=== PATIENT | female | born 1980 | race Caucasian/White ===

== ENCOUNTER → 2016-10-23 | Outpatient (CLI) | payer OTHER | END | disposition home or self-care (01) | LOC: LABWHC1 08:33 | PROVIDERS: ATTEND Orthopaedic Surgery | DX: M54.16 Radiculopathy, lumbar region (principal) | CPT/HCPCS: 87070 ==

== ENCOUNTER → 2017-07-09 | Outpatient (CLI) | payer OTHER | END | disposition home or self-care (01) | LOC: LABWHC1 09:05 | PROVIDERS: ATTEND Orthopaedic Surgery | DX: M54.16 Radiculopathy, lumbar region (principal) | CPT/HCPCS: 87070 ==

== ENCOUNTER → 2018-03-30 | Outpatient (CLI) | payer OTHER ==
--- NOTE | 2018-03-30 12:58 | XR ---
EXAMINATION TYPE: XR lumbosacral spine min 4V DATE OF EXAM: 03/30/2018 COMPARISON: 06/24/2013 HISTORY: 37-year-old female strained muscle, fascia and tendon of lower back, lifting injury yesterda y, history of back surgery x2. TECHNIQUE: 5 views FINDINGS: 5 lumbar type vertebral bodies. Progressive, now moderate degenerative disc disease at L4-L5 with dis c space narrowing and endplate sclerosis. Very mild endplate spondylosis at additional levels. Facet arthropathy mid to lower lumbar spine. Vertebral body heights are preserved and alignment is maintain ed. IMPRESSION: Progression to moderate degenerative disc disease at L4-L5. Facet arthropathy mid to lower lumbar spi ne. No vertebral compression collapse or malalignment.
== END | disposition home or self-care (01) ==
LOC: RADXRMAIN 12:19
PROVIDERS: ATTEND Emergency Medicine
DX: M51.36 Other intervertebral disc degeneration, lumbar region (principal); M48.8X6 Other specified spondylopathies, lumbar region
CPT/HCPCS: 72110

== ENCOUNTER → 2018-04-21 | Outpatient (CLI) | payer OTHER ==
--- NOTE | 2018-04-21 23:09 | MR ---
EXAMINATION TYPE: MR lumbar spine wo/w con DATE OF EXAM: 04/21/2018 COMPARISON: 06/17/2017 HISTORY: Strain of muscle, fascia, tendon, lumbar TECHNIQUE: Multiplanar, multisequence images of the lumbar spine were acquired utilizing [address] gadolinium contrast. The vertebra have fairly normal alignment. There is moderate narrowing of L4-5 disc space. There is m ild narrowing at L5-S1 disc. There is no compression fracture. There is large posterior central and r ight-sided L4-5 disc herniation. There is laminectomy at L4. There is epidural enhancement at the L4- 5 level posteriorly and anteriorly. There is no compression fracture. There is no lumbar paraspinal m ass. There is a smaller posterior left-sided L5-S1 lumbar disc herniation. There is epidural enhancem ent in this area as well. There is left-sided L5 laminectomy defect. There is mild enhancement in the L4 and L5 vertebral bodies on both sides of the disc space. IMPRESSION: There is posterior L5-S1 disc herniation on the left side unchanged compared to old exam. There are n ew postsurgical changes. There is posterior central and right sided L4-5 disc herniation without sign ificant change in size. There is epidural enhancement at L4 and L5 consistent with epidural scarring. No spinal stenosis. There is mild enhancement of L4 and L5 vertebral bodies consistent with some pos tsurgical reactive changes. I do not see evidence of discitis.
== END | disposition home or self-care (01) ==
LOC: RADMRIMAIN 13:01
PROVIDERS: ATTEND Emergency Medicine
DX: M51.17 Intervertebral disc disorders with radiculopathy, lumbosacral region (principal); S39.012D Strain of muscle, fascia and tendon of lower back, subsequent encounter; Z98.890 Other specified postprocedural states
CPT/HCPCS: 72158; A9581

== ENCOUNTER → 2018-06-11 | Outpatient (CLI) | payer OTHER | LOC: LABWHC1 16:13 | PROVIDERS: ATTEND Orthopaedic Surgery | DX: M48.061 Spinal stenosis, lumbar region without neurogenic claudication (principal) | CPT/HCPCS: 87070 ==

== ENCOUNTER → 2019-10-21 | Outpatient (CLI) | payer OTHER ==
--- NOTE | 2019-10-21 10:42 | US ---
EXAMINATION TYPE: US pelvic limited DATE OF EXAM: 10/21/2019 COMPARISON: US 04/08/2011 CLINICAL HISTORY: R10.32 Left lower quadrant pain. Partial hysterectomy TECHNIQUE: . Transabdominal sonographic images of the pelvis were acquired. Date of LMP: A few years ago EXAM MEASUREMENTS: Uterus: Surgically absent Endometrial Stripe: Surgically absent Right Ovary: 2.5 x 1.6 x 2.0 cm Left Ovary: Not visualized 1. Uterus: Surgically absent 2. Endometrium: Surgically absent 3. Right Ovary: wnl 4. Left Ovary: Obscured by overlying bowel gas 5. Bilateral Adnexa: Large amount of peristalsing bowel visualized, wnl as visualized 6. Posterior cul-de-sac: wnl IMPRESSION: Postop changes. Uterus is not seen. Right ovary is unremarkable. Left ovary not visualize d.
--- NOTE | 2019-10-21 10:52 | US ---
EXAMINATION TYPE: US abdomen complete DATE OF EXAM: 10/21/2019 COMPARISON: NONE CLINICAL HISTORY: R10.32 Left lower quadrant pain. EXAM MEASUREMENTS: Liver Length: 13.9 Gallbladder Wall: 0.2m CBD: 0.3cm Spleen: 8.7 cm Right Kidney: 12.8 x 4.9 x 5.3 cm Left Kidney: 12.5 x 5.7 x 4.7 cm Pancreas: Tail obscured by overlying bowel gas Liver: No focal mass. Echotexture within the liver appears mildly coarse. Gallbladder: wnl Evidence for sonographic Hook's sign: No CBD: wnl Spleen: wnl Right Kidney: No hydronephrosis or masses seen Left Kidney: No hydronephrosis or masses seen Upper IVC: wnl Abd Aorta: wnl There is no evident ascites. Kidneys show normal cortical medullary differentiation. IMPRESSION: Coarse echotexture within the liver could be due to hepatocellular disease, hepatic steat osis.
== END | disposition home or self-care (01) ==
LOC: RADUSWWP 08:47
PROVIDERS: ATTEND Internal Medicine
DX: R10.32 Left lower quadrant pain (principal); R93.2 Abnormal findings on diagnostic imaging of liver and biliary tract; Z98.890 Other specified postprocedural states
CPT/HCPCS: 76700; 76856; 76857

== ENCOUNTER → 2019-12-01 | Outpatient (CLI) | payer OTHER ==
--- NOTE | 2019-12-02 05:44 | CT ---
EXAMINATION TYPE: CT abdomen pelvis w con DATE OF EXAM: 12/01/2019 COMPARISON: NONE HISTORY: 39-year-old female Left sided pelvic pain post back surgery. TECHNIQUE: Contiguous axial scanning of the abdomen and pelvis following administration of 100 ml Iso ramona 300 IV contrast. Delayed images through the kidneys and coronal/sagittal reconstructions perform ed. CT DLP: 1048 mGycm Automated exposure control for dose reduction was used. FINDINGS: LUNG BASES: No significant abnormality is appreciated. LIVER/GB: No significant abnormality is appreciated. Portal venous system is patent. No biliary ducta l dilatation. PANCREAS: No significant abnormality is seen. SPLEEN: No significant abnormality is seen. ADRENALS: No significant abnormality is seen. KIDNEYS: 4 mm nonobstructive left renal calculus. LYMPH NODES: No mesenteric or retroperitoneal lymphadenopathy. Tiny fatty periumbilical hernia. BOWEL: Normal appendix. No dilated small bowel, free fluid, or free air. Mild stool burden. No peric olonic inflammatory change PELVIS: Uterus appears surgically absent. Both ovaries are seen. Bilateral tubal ligation clips are p resent. No abnormal fluid collection in the pelvis or pelvic lymphadenopathy. Muscular compression of bladder wall thickening. BONES: Postsurgical changes of L4-S1 posterior and interbody fusion with corresponding laminectomies. One of the surgical clips are displaced to the left paravertebral region immediately adjacent to the medial margin of the left psoas major, reference axial image 50. This is of questionable clinical si gnificance. IMPRESSION: 1. MILD CIRCUMFERENTIAL BLADDER WALL THICKENING. CORRELATE TO EXCLUDE CYSTITIS. 2. 4 MM NONOBSTRUCTIVE LEFT RENAL CALCULUS. 3. POSTSURGICAL CHANGES OF L4-S1 POSTERIOR AND INTERBODY FUSION WITH CORRESPONDING LAMINECTOMIES. ONE OF THE SURGICAL CLIPS ARE DISPLACED TO THE LEFT PARAVERTEBRAL REGION IMMEDIATELY ADJACENT TO THE MED IAL MARGIN OF THE LEFT PSOAS MAJOR, AXIAL IMAGE 50, AT THE L5 LEVEL. THE SIGNIFICANCE OF THIS FINDING IS QUESTIONABLE AND IS ONLY BEING REPORTED GIVEN THE PATIENT'S LEFT-SIDED PAIN. CORRELATE CLINICALLY .
== END | disposition home or self-care (01) ==
LOC: RADCTMAIN 14:50
PROVIDERS: ATTEND Internal Medicine
DX: N20.0 Calculus of kidney (principal); N32.89 Other specified disorders of bladder; Z98.890 Other specified postprocedural states
CPT/HCPCS: 74177; Q9967

== ENCOUNTER → 2020-05-10 | Outpatient (CLI) | payer OTHER ==
--- NOTE | 2020-05-10 14:16 | MM ---
Reason for exam: screening (asymptomatic). Baseline mammogram. Physical Findings: Nurse did not find any significant physical abnormalities on exam. MG 3D Screening Mammo W/Cad Bilateral CC and MLO view(s) were taken. The breast tissue is heterogeneously dense. This may lower the sensitivity of mammography. Right medial asymmetric density and posterior central asymmetric density incompletely disperse on 3D. Left lateral central and superior posterior asymmetric densities incompletely disperse on 3D. These results were verbally communicated with the patient and result sheet given to the patient on 05/10/20. ASSESSMENT: Incomplete: need additional imaging evaluation, BI-RAD 0 RECOMMENDATION: Special view mammogram of both breasts. (3D)
--- NOTE | 2020-05-10 14:18 | MM ---
Reason for exam: additional evaluation requested from abnormal screening. Physical Findings: Breast exam preformed at baseline screening. MG 3D Work Up W/Cad CARROL Bilateral spot compression CC, spot compression MLO, and LM view(s) were taken. The breast tissue is heterogeneously dense. This may lower the sensitivity of mammography. All of the bilateral asymmetric densities disperse on spot 3D. No persisting suspicious abnormalities seen. These results were verbally communicated with the patient and result sheet given to the patient on 05/10/20. ASSESSMENT: Negative, BI-RAD 1 RECOMMENDATION: Routine screening mammogram of both breasts in 1 year.
== END | disposition home or self-care (01) ==
LOC: RADMAMWWP 13:00
PROVIDERS: ATTEND Internal Medicine
DX: Z12.31 Encounter for screening mammogram for malignant neoplasm of breast (principal)
CPT/HCPCS: 77067; 77066; 77063; G0279; 77062

== ENCOUNTER → 2021-02-07 | Outpatient (CLI) | payer OTHER ==
--- NOTE | 2021-02-07 15:24 | US ---
EXAMINATION TYPE: US pelvic complete DATE OF EXAM: 02/07/2021 COMPARISON: NONE CLINICAL HISTORY: R10.2 Pelvic and perineal pain. pain on the left side after recent back surgery whe re they went through left groin TECHNIQUE: TA. Transabdominal sonographic images of the pelvis were acquired Date of LMP: hysterectomy EXAM MEASUREMENTS: Uterus: Surgically absent Endometrial Stripe: Surgically absent Right Ovary: 3.2 x 2.8 x 2.4 cm Left Ovary: 1.5 x 1.7 x 0.9 cm 1. Uterus: Surgically absent 2. Endometrium: Surgically absent 3. Right Ovary: 2.2 x 1.8 x 2.4cm simple appearing cyst right ovary. 4. Left Ovary: wnl 5. Bilateral Adnexa: wnl 6. Posterior cul-de-sac: wnl IMPRESSION: simple appearing cyst right ovary.
== END | disposition home or self-care (01) ==
LOC: RADUSWWP 14:52
PROVIDERS: ATTEND Internal Medicine
DX: N28.1 Cyst of kidney, acquired (principal)
CPT/HCPCS: 76856

== ENCOUNTER → 2022-03-11 | Outpatient (CLI) | payer OTHER ==
--- NOTE | 2022-03-12 01:02 | MR ---
EXAMINATION TYPE: MR wrist LT wo con DATE OF EXAM: 03/11/2022 COMPARISON: None HISTORY: Lt wrist pain, swelling and limited movement since 11-20-21 from a fall Multiplanar multiecho imaging of the left wrist with no contrast. The carpal bones are intact. Intercarpal joint spaces are fairly normal. Scaphoid appears normal. Met acarpals are intact. The flexor and extensor tendons appear intact. The triangular cartilage appears intact. There is linear area of decreased signal in the distal ulna metaphysis that could relate to bone infa rct or bone island and not changed compared to the hand x-ray of 01/08/2022. There is no evidence of a soft tissue mass. There is slight increased joint fluid on the dorsum of th e carpus. IMPRESSION: Mild increased dorsal joint fluid that could relate to some mild synovitis. No fracture seen. No evid ence of ligament or tendon tear..
== END | disposition home or self-care (01) ==
LOC: RADMRIMAIN 10:36
PROVIDERS: ATTEND Orthopaedic Surgery Hand Surgery
DX: M25.532 Pain in left wrist (principal)

== ENCOUNTER → 2023-01-22 | Outpatient (CLI) | payer OTHER ==
--- NOTE | 2023-01-23 20:06 | MM ---
Reason for Exam: Screening (asymptomatic). Last mammogram was performed 2 year(s) and 8 month(s) ago. Patient History: Menarche at age 11. First Full-Term at age 18. Hysterectomy at age 32. Risk Values: Delia 5 year model risk: 0.5%. NCI Lifetime model risk: 7.1%. Prior Study Comparison: 05/10/2020 Bilateral Screening Mammogram, [facility]. 05/10/2020 Bilateral Diagnostic Mammogram, [facility]. Tissue Density: The breast tissue is heterogeneously dense. This may lower the sensitivity of mammography. Findings: Analyzed By CAD. Unchanged areas of bilateral asymmetric density. There is no suspicious group of microcalcifications or new suspicious mass in either breast. Overall Assessment: Benign, BI-RAD 2 Management: Screening Mammogram of both breasts in 1 year. 1. Patient should continue monthly self breast exams. 2. A clinical breast exam by your physician is recommended on an annual basis. 3. This exam should not preclude additional follow-up of suspicious palpable abnormalities. Electronically signed and approved by: Jeremy Rand M.D. Radiologist
== END | disposition home or self-care (01) ==
LOC: RADMAMWWP 15:17
PROVIDERS: ATTEND Internal Medicine
DX: Z12.31 Encounter for screening mammogram for malignant neoplasm of breast (principal)
CPT/HCPCS: 77067